=== PATIENT | male | born 1985 | race Caucasian/White ===

== ENCOUNTER 2018-04-01 09:01 | Emergency (ER) | payer SELFPAY ==
[2018-04-01 09:07] VITALS: BP 115/79
--- NOTE | 2018-04-01 09:46 | UC ---
Abdominal Pain Male HPI - HPI Summary HPI Summary: 32-year-old male comes in with a chief complaint of right flank pain and dark urine. He's had right flank pain for almost a month. More recently his urine has become dark. Pains got a lot worse and therefore he came in for evaluation. Reports a fever several days ago that he took [id number] medications for the fever went away. Pain is in the right flank he denies any anterior abdominal pain. Denies taking excessive amounts acetaminophen or ibuprofen. - History of Current Complaint Chief Complaint: UCGU Stated Complaint: BACK PAIN Time Seen by Provider: 04/01/18 09:39 Pain Intensity: 6 - Allergies/Home Medications Allergies/Adverse Reactions: Allergies Allergy/AdvReac Type Severity Reaction Status Date / Time MS Penicillins [Penicillins] Allergy Hives Verified 02/25/14 10:41 Penicillins Allergy Hives Verified 04/01/18 09:08 PMH/Surg Hx/FS Hx/Imm Hx Previously Healthy: Yes - Surgical History Surgical History: None Surgery Procedure, Year, and Place: gastric bypass - Family History Known Family History: Positive: Non-Contributory - Social History Alcohol Use: None Substance Use Type: None Substance Use Comment - Amount & Last Used: Daily Smoking Status (MU): Current Some Day Smoker Type: Cigarettes Amount Used/How Often: 1 pack every 6 months Have You Smoked in the Last Year: Yes - Immunization History Most Recent Tetanus Shot: Unknown Review of Systems All Other Systems Reviewed And Are Negative: Yes Constitutional: Positive: Fever Skin: Positive: Negative Eyes: Positive: Negative ENT: Positive: Negative Respiratory: Positive: Negative Cardiovascular: Positive: Negative Gastrointestinal: Positive: Other - see hpi Genitourinary: Positive: Other - dark urine Motor: Positive: Negative Neurovascular: Positive: Negative Musculoskeletal: Positive: Negative Neurological: Positive: Negative Psychological: Positive: Negative Is Patient Immunocompromised?: No Physical Exam Triage Information Reviewed: Yes Appearance: Well-Nourished, Ill-Appearing - mild/moderate, Pain Distress - mild/ moderate Vital Signs: Initial Vital Signs Temp 98 F 04/01/18 09:05 Pulse 77 04/01/18 09:05 Resp 17 04/01/18 09:05 BP 115/79 04/01/18 09:05 Pulse Ox 100 04/01/18 09:05 Vital Signs Reviewed: Yes Eye Exam: Normal Eyes: Positive: Conjunctiva Clear ENT: Positive: Pharynx normal Neck exam: Normal Neck: Positive: Supple Respiratory: Positive: Lungs clear, Normal breath sounds, No respiratory distress Cardiovascular: Positive: RRR Abdomen Description: Positive: Nontender, Soft, CVA Tenderness (R), Other: - Tender to palpation right flank Bowel Sounds: Positive: Present Musculoskeletal Exam: Normal Musculoskeletal: Positive: Strength Intact, ROM Intact Neurological Exam: Normal Neurological: Positive: Alert, Muscle Tone Normal Psychological Exam: Normal Psychological: Positive: Age Appropriate Behavior Skin Exam: Normal Abd Pain Male Course/Dx - Course Course Of Treatment: I discussed the urine results with the patient. With the constellation of right flank pain and hematuria most probable cause is a kidney stone. He also has protein and bilirubin in his urine which may indicate another cause of the pain. Because we do not have timely labs here I recommended the patient go the emergency department for further evaluation and care. Patient declined embolus transport and stated he will go by POV. - Differential Dx/Clinical Impression Provider Diagnosis: Right flank pain, Hematuria, Bilirubinuria Discharge - Sign-Out/Discharge Documenting (check all that apply): Patient Departure All imaging exams completed and their final reports reviewed: No Studies - Discharge Plan Condition: Stable Disposition: HOME-RECOMMEND TO ED Patient Education Materials: Hematuria (ED), Flank Pain (ED) Referrals: [facility] [Outside] Additional Instructions: GO DIRECTLY TO THE EMERGENCY DEPARTMENT FOR FURTHER EVALUATION. - Billing Disposition and Condition Condition: STABLE Disposition: Home-Recommend to ED
== END 2018-04-01 09:54 | disposition home health service (06) ==
LOC: UCEAST 09:01
DX: R10.9 Unspecified abdominal pain (principal); R31.9 Hematuria, unspecified; R82.2 Biliuria; F17.210 Nicotine dependence, cigarettes, uncomplicated; Z88.0 Allergy status to penicillin
CPT/HCPCS: 81003; 99211; G0463

== ENCOUNTER 2018-04-01 10:47 | Emergency (ER) | payer SELFPAY ==
[2018-04-01] MEDS ORDERED: Ketorolac INJ* 30 MG/ML 1 ML VIAL IV PUSH ONE (11:44)
[2018-04-01] MEDS ORDERED: Ondansetron INJ* 2 MG/ML VIAL IV ONE (11:44)
[2018-04-01] MEDS ORDERED: NS 0.9% 1000 ML** 1,000 ML IV ONE (11:44)
--- NOTE | 2018-04-01 11:45 | ED ---
Back Pain - HPI Summary HPI Summary: Patient is a 32-year-old male who presents emergency department for intermittent right-sided flank pain times one month. Patient denies any injuries or falls. Patient states the pain has been intermittent until it was severe today. He states pain radiates into his groin. He denies fever, chills , nausea or vomiting. He has no past medical history. [facility] where he had a urinalysis done which showed RBCs felt signs of infection. Patient was sent for evaluation of possible kidney stone. Symptoms are moderate in severity. No current modifying factors. - History of Current Complaint Chief Complaint: EDBackInjuryPain Stated Complaint: PAIN LOWER BACK-RT. Time Seen by Provider: 04/01/18 11:19 Hx Obtained From: Patient Pain Intensity: 8 - Allergies/Home Medications Allergies/Adverse Reactions: Allergies Allergy/AdvReac Type Severity Reaction Status Date / Time Penicillins Allergy Hives Verified 04/01/18 09:08 PMH/Surg Hx/FS Hx/Imm Hx Previously Healthy: Yes Endocrine/Hematology History: Denies: Hx Diabetes, Hx Thyroid Disease Cardiovascular History: Denies: Hx Hypertension Respiratory History: Denies: Hx Asthma, Hx Chronic Obstructive Pulmonary Disease (COPD) GI History: Denies: Hx Ulcer - Surgical History Surgery Procedure, Year, and Place: gastric bypass Infectious Disease History: No Infectious Disease History: Denies: Hx Clostridium Difficile, Hx Hepatitis, Hx Human Immunodeficiency Virus (HIV), Hx of Known/Suspected MRSA, Hx Shingles, Hx Tuberculosis, Hx Known/ Suspected VRE, Hx Known/Suspected VRSA, History Other Infectious Disease, Traveled Outside the [place] in Last 30 Days - Family History Known Family History: Positive: Non-Contributory - Social History Occupation: Employed Full-time Lives: With Family Alcohol Use: None Substance Use Type: Reports: None Substance Use Comment - Amount & Last Used: Daily Smoking Status (MU): Current Some Day Smoker Type: Cigarettes Amount Used/How Often: 1 pack every 6 months Have You Smoked in the Last Year: Yes Review of Systems Constitutional: Negative Negative: Fever, Chills Cardiovascular: Negative Respiratory: Negative Gastrointestinal: Negative Negative: Abdominal Pain, Vomiting, Diarrhea, Nausea Positive: flank pain, hematuria Neurological: Negative All Other Systems Reviewed And Are Negative: Yes Physical Exam Triage Information Reviewed: Yes Vital Signs On Initial Exam: Initial Vitals Temp Pulse Resp BP Pulse Ox 98 F 76 16 125/85 99 04/01/18 10:50 04/01/18 10:50 04/01/18 10:50 04/01/18 10:50 04/01/18 10:50 Vital Signs Reviewed: Yes Appearance: Positive: Pain Distress - Pt. lying in bed, appears uncomfortable but nontoxic. Friend present. Skin: Positive: Warm, Dry Head/Face: Positive: Normal Head/Face Inspection Eyes: Positive: Normal, EOMI Neck: Positive: Supple Respiratory/Lung Sounds: Positive: Clear to Auscultation, Breath Sounds Present Cardiovascular: Positive: Normal, RRR Abdomen Description: Positive: Nontender, Soft, CVA Tenderness (R) Neurological: Positive: Normal, CN Intact II-III Psychiatric: Positive: Affect/Mood Appropriate Diagnostics - Vital Signs Vital Signs Temp Pulse Resp BP Pulse Ox 04/01/18 10:50 98 F 76 16 125/85 99 - Laboratory Result Diagrams: 04/01/18 12:09 04/01/18 12:09 Lab Statement: Any lab studies that have been ordered have been reviewed, and results considered in the medical decision making process. Back Pain Course/Dx - Course Course Of Treatment: Patient presenting for right leg pain and hematuria. Urinalysis performed in urgent care today was reviewed and is negative for nitrates and leukocytes. Blood work was obtained which showed mild leukocytosis as well as elevation in CRP. Patient was given IV fluids and Toradol with good improvement of his pain. CT scan shows IMPRESSION: CALCULUS OF THE MID THIRD OF THE RIGHT URETER WITH MILD RIGHT-SIDED HYDRONEPHROSIS, reading per radiology. On reexam patient rested comfortably and pain has improved. Results were discussed. Discharge patient home at this time with strainer, prescription for Percocet, Zofran and Flomax. Patient given instructions for urology if pain persists. Advised to return to the ER for increased pain, vomiting, fever or if concerned. Patient understands and agrees plan. - Diagnoses Differential Diagnosis/HQI/PQRI: Positive: Renal Colic, Strain, Sprain Provider Diagnoses: Urolithiasis Discharge - Sign-Out/Discharge Documenting (check all that apply): Patient Departure Patient Received Moderate/Deep Sedation with Procedure: No - Discharge Plan Condition: Improved Disposition: HOME Prescriptions: Ondansetron TAB* [Zofran 4 MG Tab*] 4 mg PO Q6H PRN #12 tab PRN Reason: Nausea oxyCODONE/Acetamin 5/325 MG* [Percocet 5/325 TAB*] 1 tab PO Q6H PRN #12 tab MDD 4 PRN Reason: Pain Tamsulosin CAP* [Flomax CAP*] 0.4 mg PO DAILY #5 cap Patient Education Materials: Kidney Stones (ED) Referrals: [facility] [Outside] Jorge Luis Alvarez MD [Medical Doctor] - Additional Instructions: Schedule a follow up appointment with urology if pain persist Medication as directed Increase fluids Strain urine Return to ER for increased pain, fever, vomiting or if concerned - Billing Disposition and Condition Condition: IMPROVED Disposition: Home
[2018-04-01 12:28] LABS: ABS Basophils 0 10^3/ul (0-0.2); ABS Eosinophils 0 10^3/ul (0-0.6); ABS Lymphocytes 2.6 10^3/ul (1.0-4.8); ABS Monocytes 0.9 10^3/ul (0-0.8); ABS Neutrophils 8.4 10^3/ul (1.5-7.7); ABS Nucleated RBC 0 10^3/ul; Eosinophil % 0.3 %; Hematocrit 39 % (42-52); Lymphocyte % 21.7 %; Mean Corpuscular HGB Conc 33 g/dl (31-36); Mean Corpuscular Hemoglobin 27 pg (27-31); Mean Corpuscular Volume 81 fL (80-94); Mean Platelet Volume 9.7 fL (7.4-10.4); Nucleated Red Blood Cells % 0; Platelet Count 284 10^3/ul (150-450); Red Blood Count 4.87 10^6/ul (4.00-5.40); Red Cell Distribution Width 16 % (10.5-15); White Blood Count 11.9 10^3/ul (3.5-10.8)
[2018-04-01 12:48] LABS: Albumin 3.9 g/dL (3.2-5.2); Albumin/Globulin Ratio 1.4 (1-3); BUN/Creatinine Ratio 8.9 (8-20); C Reactive Protein 107.34 mg/L (<8.01); EGFR African American 91.9 (>60); Globulin 2.8 g/dL (2-4); Potassium 3.9 mmol/L (3.5-5.0); Total Bilirubin 0.6 mg/dL (0.2-1.0); Total Protein 6.7 g/dL (6.4-8.9)
[2018-04-01 15:00] VITALS: BP 111/72
== END 2018-04-01 14:59 | disposition home or self-care (01) ==
LOC: ED 10:47
DX: N20.9 Urinary calculus, unspecified (principal); R10.84 Generalized abdominal pain; R31.9 Hematuria, unspecified; Z72.0 Tobacco use
CPT/HCPCS: 36415; 74176; 80053; 85025; 86140; 96361; 96374; 96375; 99282; J1885; J2405

== ENCOUNTER 2018-04-03 05:30 | Emergency (ER) | payer OTHER ==
[2018-04-03] MEDS ORDERED: NS 0.9% 1000 ML** 1,000 ML IV ONE (05:38)
--- NOTE | 2018-04-03 05:40 | ED ---
Back Pain - HPI Summary HPI Summary: Patient is a 32-year-old male who presents to emergency department for worsening flank pain. Patient was treated in the ER 2 days ago and diagnosed with right ureterolithiasis and hydronephrosis. Stone was measured at 4 mm. Patient states yesterday pain was improving and was located to groin region but today pain increased to right flank. Patient notes difficulty urinating but denies dysuria or hematuria today. He denies fever, chills. Pt. notes he has only been taking pain medication only after pain increases. He states he has been straining his urine and has not noted any stone material. He has no significant past medical history. Symptoms are moderate in severity. No current modifying factors. - History of Current Complaint Chief Complaint: EDFlankPain Stated Complaint: FLANK PAIN Time Seen by Provider: 04/03/18 05:38 Hx Obtained From: Patient Pain Intensity: 8 - Allergies/Home Medications Allergies/Adverse Reactions: Allergies Allergy/AdvReac Type Severity Reaction Status Date / Time Penicillins Allergy Hives Verified 04/03/18 05:35 PMH/Surg Hx/FS Hx/Imm Hx Previously Healthy: Yes Endocrine/Hematology History: Denies: Hx Diabetes, Hx Thyroid Disease Cardiovascular History: Denies: Hx Hypertension Respiratory History: Denies: Hx Asthma, Hx Chronic Obstructive Pulmonary Disease (COPD) GI History: Denies: Hx Ulcer - Surgical History Surgery Procedure, Year, and Place: gastric bypass Infectious Disease History: No Infectious Disease History: Denies: Hx Clostridium Difficile, Hx Hepatitis, Hx Human Immunodeficiency Virus (HIV), Hx of Known/Suspected MRSA, Hx Shingles, Hx Tuberculosis, Hx Known/ Suspected VRE, Hx Known/Suspected VRSA, History Other Infectious Disease, Traveled Outside the [place] in Last 30 Days - Family History Known Family History: Positive: Non-Contributory - Social History Occupation: Unemployed Lives: With Family Alcohol Use: None Substance Use Type: Reports: None Substance Use Comment - Amount & Last Used: Daily Smoking Status (MU): Current Some Day Smoker Type: Cigarettes Amount Used/How Often: 1 pack every 6 months Have You Smoked in the Last Year: Yes Review of Systems Constitutional: Negative Negative: Fever, Chills Cardiovascular: Negative Respiratory: Negative Positive: Abdominal Pain. Negative: Vomiting, Diarrhea, Nausea Positive: flank pain. Negative: burning, hematuria Neurological: Negative All Other Systems Reviewed And Are Negative: Yes Physical Exam Triage Information Reviewed: Yes Vital Signs On Initial Exam: Initial Vitals Temp Pulse Resp BP Pulse Ox 97.1 F 77 18 98/76 96 04/03/18 05:32 04/03/18 05:32 04/03/18 05:32 04/03/18 05:32 04/03/18 05:32 Vital Signs Reviewed: Yes Appearance: Positive: Pain Distress - Pt. lying in bed, appears in pain but nontoxic. Skin: Positive: Warm, Dry Head/Face: Positive: Normal Head/Face Inspection Eyes: Positive: Normal, EOMI, Conjunctiva Clear Neck: Positive: Supple Respiratory/Lung Sounds: Positive: Clear to Auscultation, Breath Sounds Present Cardiovascular: Positive: Normal, RRR Abdomen Description: Positive: Other: - Abd. is soft with mild tenderness to RLQ. No rebound tenderness or guarding. Right CVA tenderness. Musculoskeletal: Positive: Normal, Strength/ROM Intact Neurological: Positive: Normal, CN Intact II-III Psychiatric: Positive: Affect/Mood Appropriate Diagnostics - Vital Signs Vital Signs Temp Pulse Resp BP Pulse Ox 04/03/18 05:32 97.1 F 77 18 98/76 96 - Laboratory Result Diagrams: 04/03/18 05:45 04/03/18 05:45 Lab Statement: Any lab studies that have been ordered have been reviewed, and results considered in the medical decision making process. Back Pain Course/Dx - Course Course Of Treatment: Patient presenting with worsening flank pain with a recent diagnosis of renal lithiasis. He is afebrile stable vital signs. We'll recheck blood work and urinalysis. Abdominal flat plate ordered to evaluate for stone. Patient started on IV fluids and pain medications. Labs again show elevated in wbc an crp. Normal renal function. U/A is negative for infection, culture sent. Xray unremarkable per radiology. ON re-exam pt. sleeping comfortably and pain has resolved. Will dc home to fu. with urology. Pt. has only been taking percocet at home when pain becomes severe. Advised to take percocet every 4-6 hours and rotate in between motrin. 0815: Pt. re-examined. He is resting comfortably and pain has resolved. He is tolerating PO fluids. To schedule f.u with urology. TO increase fluids. TO return to ER for increased pain, vomting, fver, or if concerned. Pt. understands and agrees with plan. - Diagnoses Differential Diagnosis/HQI/PQRI: Positive: Renal Colic Provider Diagnoses: Kidney stone on right side Discharge - Sign-Out/Discharge Documenting (check all that apply): Patient Departure Patient Received Moderate/Deep Sedation with Procedure: No - Discharge Plan Condition: Improved Disposition: HOME Patient Education Materials: Renal Colic (ED) Referrals: Mau Stoner MD [Medical Doctor] - Additional Instructions: Call Dr. Stoner's (urology) office on Thursday to schedule an appointment if pain persist Increase fluids Rotate one percocet and 600mg ibuprofen every 6 hours as directed for pain control Continue flomax as directed Continue straining urine Return to ER for uncontrollable vomiting/pain, fever, or if concerned - Billing Disposition and Condition Condition: IMPROVED Disposition: Home
[2018-04-03] MEDS ORDERED: Ketorolac INJ* 30 MG/ML 1 ML VIAL IV PUSH ONE (05:50)
[2018-04-03] MEDS ORDERED: Morphine VIAL* 10 MG/ML 1 ML VIAL IV ONE (05:50)
[2018-04-03 05:55] LABS: ABS Basophils 0.1 10^3/ul (0-0.2); ABS Eosinophils 0 10^3/ul (0-0.6); ABS Lymphocytes 1.8 10^3/ul (1.0-4.8); ABS Neutrophils 10.4 10^3/ul (1.5-7.7); ABS Nucleated RBC 0 10^3/ul; Eosinophil % 0.4 %; Hematocrit 38 % (42-52); Hemoglobin 12.2 g/dl (14.0-18.0); Lymphocyte % 13.3 %; Mean Corpuscular HGB Conc 33 g/dl (31-36); Mean Corpuscular Hemoglobin 26 pg (27-31); Mean Corpuscular Volume 81 fL (80-94); Mean Platelet Volume 9.4 fL (7.4-10.4); Nucleated Red Blood Cells % 0; Platelet Count 294 10^3/ul (150-450); Red Blood Count 4.63 10^6/ul (4.00-5.40); Red Cell Distribution Width 15 % (10.5-15); White Blood Count 13.3 10^3/ul (3.5-10.8)
[2018-04-03 06:01] LABS: Urine Appearance Cloudy; Urine Bacteria Absent (Absent); Urine Bilirubin Negative (Negative); Urine Blood 3+ (Negative); Urine Color Yellow; Urine Glucose Negative (Negative); Urine Ketones Trace (Negative); Urine Nitrite Negative (Negative); Urine Protein Negative (Negative); Urine Red Blood Cell 3+(>10/hpf) (Absent); Urine Specific Gravity 1.021 (1.010-1.030); Urine Squamous Epithelial Cell Present (Absent); Urine Urobilinogen Positive (Negative); Urine White Blood Cell Trace(0-5/hpf) (Absent)
[2018-04-03 06:13] LABS: Albumin 3.9 g/dL (3.2-5.2); Albumin/Globulin Ratio 1.2 (1-3); BUN/Creatinine Ratio 8.8 (8-20); C Reactive Protein 134.72 mg/L (<8.01); Calcium 9.3 mg/dL (8.6-10.3); EGFR African American 90.1 (>60); EGFR Non-African American 74.4 (>60); Globulin 3.2 g/dL (2-4); Potassium 3.4 mmol/L (3.5-5.0); Total Bilirubin 0.7 mg/dL (0.2-1.0); Total Protein 7.1 g/dL (6.4-8.9)
[2018-04-03 08:28] VITALS: BP 109/59
== END 2018-04-03 08:28 | disposition home or self-care (01) ==
LOC: ED 05:30
DX: N20.0 Calculus of kidney (principal); Z98.84 Bariatric surgery status; Z88.0 Allergy status to penicillin; Z72.0 Tobacco use
CPT/HCPCS: 36415; 74018; 80053; 81003; 81015; 85025; 86140; 87086; 96361; 96374; 96375; 99283; J1885; J2270

== ENCOUNTER 2021-04-18 00:14 | Observation (INO) ==
[2021-04-18] MEDS ORDERED: Morphine 10 MG/ML VIAL (1 ml) IV ONE ×2 (00:35→03:25)
[2021-04-18] MEDS ORDERED: NS 0.9% 1000 ml BAG 1,000 ML IV ONE (00:35)
[2021-04-18 00:58] LABS: ABS Eosinophils 0.1 10^3/ul (0-0.6); ABS Lymphocytes 1.5 10^3/ul (1.0-4.8); ABS Monocytes 0.6 10^3/ul (0-0.8); ABS Neutrophils 7.1 10^3/ul (1.5-7.7); Eosinophil % 0.9 %; Hematocrit 28 % (42-52); Hemoglobin 8.7 g/dL (14.0-18.0); Lymphocyte % 15.8 %; Mean Corpuscular HGB Conc 31 g/dL (31-36); Mean Corpuscular Hemoglobin 21 pg (27-31); Mean Corpuscular Volume 69 fL (80-94); Mean Platelet Volume 7.9 fL (7.4-10.4); Platelet Count 247 10^3/uL (150-450); Red Blood Count 4.08 10^6 /uL (4.18-5.48); Red Cell Distribution Width 18 % (10-15); White Blood Count 9.3 10^3/uL (3.5-10.8)
[2021-04-18 00:59] LABS: Activated Partial Thrombo Time 29.9 seconds (26.0-38.0); INR 1.09 (0.86-1.15)
[2021-04-18] MEDS ORDERED: Pantoprazole 80 mg in NS BAG 80 MG/250 ML BAG IV ONE (01:00)
[2021-04-18 01:08] LABS: High Sens Troponin Baseline < 3 pg/mL (<20)
[2021-04-18 01:12] LABS: ALT 13 U/L (7-52); AST 15 U/L (13-39); Albumin 3.7 g/dL (3.2-5.2); Albumin/Globulin Ratio 1.9 (1-3); Alkaline Phosphatase 64 U/L (35-149); Anion Gap 4 mmol/L (2-11); Blood Urea Nitrogen 9 mg/dL (6-24); CO2 Carbon Dioxide 28 mmol/L (22-32); Calcium 8.5 mg/dL (8.6-10.3); Chloride 105 mmol/L (101-111); Glucose 106 mg/dL (70-100); Potassium 3.8 mmol/L (3.5-5.0); Sodium 137 mmol/L (135-145); Total Protein 5.7 g/dL (6.4-8.9); eGFR CKD-EPI 122.2 (>60)
[2021-04-18] MEDS ORDERED: Iohexol 300 (CONTRAST) 10 ML SDV IV ONE (01:20)
[2021-04-18 02:06] LABS: High Sensitivity Troponin 1 Hr 3 pg/mL (<20)
[2021-04-18 06:32] LABS: ABS Eosinophils 0.1 10^3/ul (0-0.6); ABS Lymphocytes 2.4 10^3/ul (1.0-4.8); ABS Monocytes 0.6 10^3/ul (0-0.8); ABS Neutrophils 5.2 10^3/ul (1.5-7.7); Eosinophil % 1.1 %; Hematocrit 27 % (42-52); Hemoglobin 8.3 g/dL (14.0-18.0); Lymphocyte % 28.8 %; Mean Corpuscular HGB Conc 31 g/dL (31-36); Mean Corpuscular Hemoglobin 21 pg (27-31); Mean Corpuscular Volume 70 fL (80-94); Mean Platelet Volume 8.7 fL (7.4-10.4); Platelet Count 217 10^3/uL (150-450); Red Blood Count 3.87 10^6 /uL (4.18-5.48); Red Cell Distribution Width 18 % (10-15); White Blood Count 8.3 10^3/uL (3.5-10.8)
[2021-04-18 06:36] LABS: Anion Gap 2 mmol/L (2-11); Blood Urea Nitrogen 7 mg/dL (6-24); CO2 Carbon Dioxide 28 mmol/L (22-32); Calcium 8.2 mg/dL (8.6-10.3); Chloride 106 mmol/L (101-111); Glucose 93 mg/dL (70-100); Magnesium 1.9 mg/dL (1.9-2.7); Phosphorus 3.6 mg/dL (2.5-5.0); Potassium 3.9 mmol/L (3.5-5.0); Sodium 136 mmol/L (135-145); eGFR CKD-EPI 124.9 (>60)
[2021-04-18 08:14] LABS: Transferrin 323 mg/dL (203-362)
[2021-04-18 08:15] LABS: Total Iron Binding Capacity 452 mcg/dL (250-450)
[2021-04-18 08:35] LABS: Ferritin 2.2 ng/mL (24-336)
[2021-04-18 08:38] LABS: % Iron Saturation 4 % (15-55); Iron < 20 ug/dL (50-212); Unsaturated Iron Binding 432 ug/dL
[2021-04-18] MEDS ORDERED: Acetaminophen IV 1 GM/100ML 100 ML IV PRN (09:12)
[2021-04-18] MEDS ORDERED: Lidocaine 2% PF 5 ML VIAL ONE (12:36)
[2021-04-18] MEDS ORDERED: Lidocaine 2% PF 10 ML AMP ONE (12:36)
[2021-04-18] MEDS ORDERED: Propofol 10 MG/ML 20 ML BTL ONE ×2 (12:36→13:23)
[2021-04-18] MEDS ORDERED: fentaNYL 100 mcg/2 ml 50 MCG/ML VIAL ONE (12:36)
[2021-04-18] MEDS ORDERED: EPINEPHrine SYR 0.1MG/ML 10 ml SYRINGE ONE (13:34)
[2021-04-18] MEDS ORDERED: Iron Sucrose 200 MG in NS 0.9% 100 ml BAG 100 ML IVPB ONE (14:00)
[2021-04-18 17:16] LABS: Vitamin B12 465 pg/mL (180-914)
[2021-04-18 17:20] LABS: Vitamin D Total 25(OH) 25.3 ng/mL (20-50)
[2021-04-18] MEDS: Pantoprazole 80 mg in NS BAG 80 MG/250 ML BAG IV SCH (17:50)
[2021-04-19] MEDS: Pantoprazole 80 mg in NS BAG 80 MG/250 ML BAG IV SCH (04:44)
[2021-04-19 07:05] LABS: Hematocrit 27 % (42-52); Hemoglobin 8.5 g/dL (14.0-18.0); Mean Corpuscular HGB Conc 32 g/dL (31-36); Mean Corpuscular Hemoglobin 22 pg (27-31); Mean Corpuscular Volume 69 fL (80-94); Mean Platelet Volume 9.2 fL (7.4-10.4); Platelet Count 192 10^3/uL (150-450); Red Blood Count 3.92 10^6 /uL (4.18-5.48); Red Cell Distribution Width 18 % (10-15); White Blood Count 5.4 10^3/uL (3.5-10.8)
[2021-04-19 07:17] LABS: Calcium 8.4 mg/dL (8.6-10.3); Magnesium 1.9 mg/dL (1.9-2.7); Potassium 3.9 mmol/L (3.5-5.0); eGFR CKD-EPI 123.8 (>60)
[2021-04-19] MEDS ORDERED: Iron Sucrose 200 MG in NS 0.9% 100 ml BAG 100 ML IVPB SCH (09:00)
[2021-04-19 11:22] VITALS: BP 108/58
== END 2021-04-19 11:45 | disposition left against medical advice (07) ==
LOC: ED 00:14 → EDHOLD 00:14 → SUATTDRO 04:31 → MED 06:35
PROVIDERS: ADMIT Internal Medicine; ATTEND Internal Medicine
PROC: O.GIEGD (2021-04-18 12:25)

== ENCOUNTER 2021-05-31 18:27 | Observation (INO) ==
[2021-05-31] MEDS ORDERED: Thiamine 100 MG/ML 2 ml VIAL 100 MG, Folic Acid IV 1 MG, Multiple Vitamin IV ADULT 10 M... IV ONE (19:30)
[2021-05-31 19:51] LABS: ABS Lymphocytes 2.1 10^3/ul (1.0-4.8); ABS Monocytes 0.6 10^3/ul (0-0.8); ABS Neutrophils 5.7 10^3/ul (1.5-7.7); Eosinophil % 0.5 %; Hematocrit 38 % (42-52); Hemoglobin 11.9 g/dL (14.0-18.0); Lymphocyte % 24.9 %; Mean Corpuscular HGB Conc 32 g/dL (31-36); Mean Corpuscular Hemoglobin 23 pg (27-31); Mean Corpuscular Volume 72 fL (80-94); Mean Platelet Volume 9.1 fL (7.4-10.4); Nucleated Red Blood Cells % 0.1; Platelet Count 246 10^3/uL (150-450); Red Blood Count 5.24 10^6 /uL (4.18-5.48); Red Cell Distribution Width 21 % (10-15); White Blood Count 8.5 10^3/uL (3.5-10.8)
[2021-05-31 19:54] LABS: INR 1.24 (0.86-1.15)
[2021-05-31] MEDS ORDERED: Morphine 10 MG/ML VIAL (1 ml) IV ONE (20:04)
[2021-05-31] MEDS ORDERED: Lactated Ringers 1000 ml BAG 1,000 ML IV ONE (20:05)
[2021-05-31] MEDS ORDERED: Pantoprazole 80 mg in NS BAG 80 MG/250 ML BAG IV ONE (20:15)
[2021-05-31 20:17] LABS: Albumin 4.2 g/dL (3.2-5.2); C Reactive Protein 31.15 mg/L (<8.01); Potassium 3.6 mmol/L (3.5-5.0); Total Bilirubin 0.4 mg/dL (0.2-1.0); eGFR CKD-EPI 118.4 (>60)
[2021-05-31] MEDS ORDERED: Iohexol 300 (CONTRAST) 10 ML SDV IV ONE (20:20)
[2021-05-31 21:55] LABS: Albumin/Globulin Ratio 1.7 (1-3); Globulin 2.5 g/dL (2-4); Total Protein 6.7 g/dL (6.4-8.9)
[2021-05-31] MEDS ORDERED: Pantoprazole VIAL 40 MG VIAL IV ONE (22:00)
[2021-05-31] MEDS ORDERED: Ondansetron 4 mg VIAL 2 MG/ML 2 ml VIAL IV PRN (22:13)
[2021-05-31 22:21] LABS: Urine Appearance Clear; Urine Bilirubin Negative (Negative); Urine Blood Negative (Negative); Urine Color Yellow; Urine Glucose Negative (Negative); Urine Ketones Negative (Negative); Urine Nitrite Negative (Negative); Urine Protein Negative (Negative); Urine Specific Gravity 1.044 (1.002-1.030); Urine Urobilinogen Positive (Negative)
[2021-06-01] MEDS: Lactated Ringers 1000 ml BAG 1,000 ML IV SCH ×2 (02:26→15:08)
[2021-06-01 05:47] LABS: ABS Eosinophils 0.1 10^3/ul (0-0.6); ABS Monocytes 0.6 10^3/ul (0-0.8); ABS Neutrophils 3.5 10^3/ul (1.5-7.7); Eosinophil % 1.5 %; Hematocrit 32 % (42-52); Mean Corpuscular HGB Conc 32 g/dL (31-36); Mean Corpuscular Hemoglobin 23 pg (27-31); Mean Corpuscular Volume 72 fL (80-94); Mean Platelet Volume 9.1 fL (7.4-10.4); Nucleated Red Blood Cells % 0.1; Platelet Count 183 10^3/uL (150-450); Red Blood Count 4.39 10^6 /uL (4.18-5.48); Red Cell Distribution Width 22 % (10-15); White Blood Count 7.2 10^3/uL (3.5-10.8)
[2021-06-01 06:09] LABS: Albumin 3.4 g/dL (3.2-5.2); Albumin/Globulin Ratio 1.8 (1-3); Calcium 8.1 mg/dL (8.6-10.3); Direct Bilirubin 0.1 mg/dL (0.03-0.18); Globulin 1.9 g/dL (2-4); Indirect Bilirubin 0.3 mg/dL (0.3-1.0); Potassium 3.6 mmol/L (3.5-5.0); Total Bilirubin 0.4 mg/dL (0.2-1.0); Total Protein 5.3 g/dL (6.4-8.9); eGFR CKD-EPI 121.7 (>60)
[2021-06-01] MEDS ORDERED: Pantoprazole VIAL 40 MG VIAL IV SCH (08:00)
[2021-06-01] MEDS ORDERED: HYDROcodone/ACET. 7.5/325 LIQ 15 ML UDC PO PRN (10:25)
[2021-06-01] MEDS: Sucralfate 1 gm SUSP 1 GM/10 ML UDC PO SCH ×2 (12:15→16:17)
[2021-06-01] MEDS ORDERED: Midazolam 2 mg/2 ml VIAL 1 mg/ml 2 ml VIAL (2 mg) ONE (12:40)
[2021-06-01] MEDS ORDERED: Ketamine HCL 50 mg/ml 10 ml VIAL (500 MG) ONE (12:40)
[2021-06-01] MEDS ORDERED: Ondansetron 4 mg VIAL 2 MG/ML 2 ml VIAL ONE (12:40)
[2021-06-01] MEDS ORDERED: Propofol 10 MG/ML 20 ML BTL ONE (12:40)
[2021-06-01] MEDS ORDERED: fentaNYL 100 mcg/2 ml 50 MCG/ML VIAL ONE (12:40)
[2021-06-01] MEDS ORDERED: Lidocaine 2% PF 5 ML VIAL ONE (12:41)
[2021-06-01] MEDS ORDERED: Iron Sucrose 200 MG in NS 0.9% 100 ml BAG 100 ML IVPB ONE (14:00)
[2021-06-01] MEDS ORDERED: Pantoprazole 80 mg in NS BAG 80 MG/250 ML BAG IV SCH (15:00)
[2021-06-01 16:19] VITALS: BP 122/74
== END 2021-06-01 16:20 | disposition left against medical advice (07) ==
LOC: EDHOLD 18:27 → ED 18:27 → SUATTDRO 21:59 → SSU 23:43
PROVIDERS: ADMIT Internal Medicine; ATTEND Internal Medicine
PROC: O.GIEGD (2021-06-01 13:30)

== ENCOUNTER 2021-06-19 05:58 | Inpatient (IN) ==
[2021-06-19] MEDS ORDERED: Lactated Ringers 1000 ml BAG 1,000 ML IV SCH (06:00)
[2021-06-19] MEDS ORDERED: Buffered Lidocaine 1% SYRIN 1 ml INTRADERM ONE (06:00)
[2021-06-19] MEDS ORDERED: Clindamycin 900 MG/D5W BAG 900 MG/50 ML BAG IVPB ONE (06:47)
[2021-06-19] MEDS ORDERED: Methylene Blue 0.5 % 50 MG/10 ML AMP IV ONE (06:50)
[2021-06-19] MEDS ORDERED: Bupivacaine 0.25% w/EPI 10 ML SDV ONE (06:51)
[2021-06-19] MEDS ORDERED: fentaNYL 250 mcg/5 ml 50 MCG/ML 5 ml VIAL (250 MCG) ONE (07:12)
[2021-06-19] MEDS ORDERED: Rocuronium 50 mg VIAL 10 mg/ml 5 ml VIAL (50 mg) ONE ×2 (07:12→10:41)
[2021-06-19] MEDS ORDERED: Midazolam 2 mg/2 ml VIAL 1 mg/ml 2 ml VIAL (2 mg) ONE (07:12)
[2021-06-19] MEDS ORDERED: Lidocaine 2% PF 5 ML VIAL ONE (07:17)
[2021-06-19] MEDS ORDERED: Propofol 10 MG/ML 20 ML BTL ONE ×2 (07:19→07:44)
[2021-06-19] MEDS ORDERED: Ondansetron 4 mg VIAL 2 MG/ML 2 ml VIAL ONE (08:10)
[2021-06-19] MEDS ORDERED: Dexamethasone IV 4 MG/ML VIAL 1 ml VIAL ONE (08:10)
[2021-06-19] MEDS ORDERED: HYDROmorphone 0.5 MG/0.5 ML SYRINGE ONE ×2 (08:21→09:57)
[2021-06-19] MEDS ORDERED: fentaNYL 100 mcg/2 ml 50 MCG/ML VIAL ONE ×2 (08:58→11:26)
[2021-06-19] MEDS ORDERED: Ketamine HCL 50 mg/ml 10 ml VIAL (500 MG) ONE (09:06)
[2021-06-19] MEDS ORDERED: Phenylephrine IV 10 MG/ML 1 ml VIAL ONE (09:16)
[2021-06-19] MEDS ORDERED: fentaNYL 100 mcg/2 ml 50 MCG/ML VIAL IV PRN (10:58)
[2021-06-19] MEDS ORDERED: HYDROmorphone 1 MG/1 ML SYRINGE IV PRN (10:58)
[2021-06-19] MEDS ORDERED: Naloxone 0.4 mg VIAL 0.4 mg/ml 1 ml VIAL IV PRN (10:58)
[2021-06-19] MEDS ORDERED: Ondansetron 4 mg VIAL 2 MG/ML 2 ml VIAL IV PRN ×2 (10:58→12:22)
[2021-06-19] MEDS ORDERED: HYDROcodone/ACET. 7.5/325 LIQ 15 ML UDC PO PRN (12:22)
[2021-06-19] MEDS ORDERED: HYDROmorphone 1 MG/1 ML SYRINGE ONE (13:16)
[2021-06-19 16:08] LABS: Urine Appearance Clear; Urine Bilirubin Negative (Negative); Urine Blood Negative (Negative); Urine Color Straw; Urine Glucose Negative (Negative); Urine Ketones Negative (Negative); Urine Nitrite Negative (Negative); Urine Protein Negative (Negative); Urine Specific Gravity 1.009 (1.002-1.030); Urine Urobilinogen Negative (Negative)
[2021-06-19] MEDS: HYDROmorphone 0.5 MG/0.5 ML SYRINGE IV SLOW PU PRN ×2 (16:57→22:25)
[2021-06-19] MEDS: Heparin 5000 UNITS/ML 1 mL VIAL SUBCUT SCH (22:26)
[2021-06-20] MEDS: Lactated Ringers 1000 ml BAG 1,000 ML IV SCH ×2 (01:43→04:41)
[2021-06-20] MEDS: Heparin 5000 UNITS/ML 1 mL VIAL SUBCUT SCH ×3 (06:25→21:28)
[2021-06-20] MEDS ORDERED: HYDROmorphone 1 MG/1 ML SYRINGE IV SLOW PU PRN (09:10)
[2021-06-20] MEDS ORDERED: Nicotine PATCH 21 MG/24 HR PATCH ONE (09:20)
[2021-06-20] MEDS: Nicotine PATCH 21 MG/24 HR PATCH TRANSDERM SCH (09:24)
[2021-06-20] MEDS: D5W 1/2 NS KCl 20 meq 1000 ml 1,000 ML IV SCH ×2 (13:46→20:37)
[2021-06-20] MEDS: HYDROmorphone 0.5 MG/0.5 ML SYRINGE IV SLOW PU PRN (14:58)
[2021-06-21] MEDS: D5W 1/2 NS KCl 20 meq 1000 ml 1,000 ML IV SCH (06:06)
[2021-06-21] MEDS: Heparin 5000 UNITS/ML 1 mL VIAL SUBCUT SCH (06:08)
[2021-06-21] MEDS: Nicotine PATCH 21 MG/24 HR PATCH TRANSDERM SCH (06:59)
[2021-06-21 11:36] VITALS: BP 132/73
== END 2021-06-21 15:40 | disposition home or self-care (01) | DRG 222 ==
LOC: AA 05:58 → SSU 14:46
PROVIDERS: ADMIT Surgery; ATTEND Surgery